=== PATIENT | female | born 1985 | race Caucasian/White ===

== ENCOUNTER 2016-12-15 16:46 | Emergency (ER) | payer OTHER ==
[~2016-12-15] VITALS: Ht 165.1 cm; Wt 99.8 kg
--- NOTE | 2016-12-15 18:44 | ED Integumentary General ---
General Chief Complaint: Bite-Animal/Human/Insect Stated Complaint: L LEG POSS SPIDER BITE Nursing Triage Note: pt reports possible spider bite on left haro that she states started last sunday. reports no improvement throughout the week and increased pain with movement to that area. pt amb into exam room without difficulty. denies chills, fever, or drainage from site. area of redness noted to left haro. Source: patient Exam Limitations: no limitations History of Present Illness Time seen by provider: 18:31 Initial Comments Here with report of possible insect bite to the left mid anterior haro area. This started on Sunday and has worsened through today. States that she got up at 3 a.m. on Sunday morning and smoked a cigarette outside. She got back up at 7 a.m. and noted that she had this wound to the anterior haro that she believes is a spider bite or other insect bite. Now there is redness around this on the lower leg. Denies fever or chills. Denies pain in her calf. Denies recent long trips or car rides or recent surgery. No history of DVT. Denies any pain in her calf or the rest of her leg. Timing/Duration: week, getting worse Severity: moderate Associated Symptoms: edema, No fever, No nasal congestion, No sore throat, No swelling/mass/lumps Allergies and Home Medications Allergies Coded Allergies: Penicillins (Verified Allergy, Unknown, 01/03/07) Home Medications No Active Prescriptions or Reported Meds Constitutional: see HPI, No chills, No fever EENTM: no symptoms reported Respiratory: no symptoms reported, No dyspnea on exertion, No short of breath, No wheezing Cardiovascular: no symptoms reported Gastrointestinal: no symptoms reported Musculoskeletal: see HPI, muscle pain Skin: see HPI, change in color, No lesions Psychiatric/Neurological: No Symptoms Reported Past Mzkzsyu-Upuywu-Sewtxp Hx Patient Social History Alcohol Use: Rarely Uses Number of Drinks Today: 0 Alcohol Beverage of Choice: Vodka Recreational Drug Use: No Smoking Status: Current Everyday Smoker Type Used: Cigarettes 2nd Hand Smoke Exposure: Yes Recent Foreign Travel: No Contact w/Someone Who Travel: No Recent Infectious Disease Expo: No Recent Hopitalizations: No Immunizations Up To Date Tetanus Booster (TDap): More than 5yrs Seasonal Allergies Seasonal Allergies: Yes Surgeries Surgeries: Adenoidectomy, Section, Tonsillectomy Respiratory History of Respiratory Disorde: No Cardiovascular History of Cardiac Disorders: No Neurological History of Neurological Disord: No Reproductive System : No Last Menstrual Period: Nov 24, 2016 Sexually Transmitted Disease: No HIV/AIDS: No Genitourinary History of Genitourinary Disor: No Gastrointestinal History of Gastrointestinal Di: No Musculoskeletal History of Musculoskeletal Dis: No Endocrine History of Endocrine Disorders: No HEENT History of HEENT Disorders: No Cancer History of Cancer: No Psychosocial History of Psychiatric Problem: Yes Behavioral Health Disorders: ADD/ADHD, Anxiety Integumentary History of Skin or Integumenta: Yes Skin/Integumentary Disorders: Eczema Blood Transfusions History of Blood Disorders: Yes (anemia) Reviewed Nursing Assessment Reviewed/Agree w Nursing PMH: Yes Family Medical History Significant Family History: No Pertinent Family Hx Physical Exam Vital Signs Vital Sign - Last 12Hours 12/15/16 18:01 Temp 97.5 Pulse 93 Resp 18 B/P (MAP) 130/71 Pulse Ox 100 O2 Delivery Room Air Capillary Refill : Less Than 3 Seconds General Appearance: WD/WN, no apparent distress Cardiovascular: regular rate, rhythm, no murmur Respiratory: lungs clear, normal breath sounds Gastrointestinal: non tender, soft Extremities: non-tender, No calf tenderness, other (3 x 5 cm area of redness and induration without fluctuance to the mid tibia region anteriorly. There is surrounding mild erythema to the lower extremity below the knee. Nontender throughout the rest of the leg except for the area over the anterior tibia. No pain in the upper leg.) Neurologic/Psychiatric: alert, oriented x 3 Skin: warm/dry, other (skin findings as above.) Progress/Results/Core Measures Results/Orders Vital Signs/I&O Vital Sign - Last 12Hours 12/15/16 18:01 Temp 97.5 Pulse 93 Resp 18 B/P (MAP) 130/71 Pulse Ox 100 O2 Delivery Room Air Blood Pressure Mean: 90 Progress Note : Progress Note Seen and evaluated. Will treat with antibiotic as outpatient given the length of time. This is discussed with the patient and she agrees. Discharged home with return precautions. Patient verbalize understanding instructions and agreement with plan. Departure Impression Impression: Primary Impression: Cellulitis of left lower extremity Additional Impression: Insect bite Qualified Codes: W57.XXXA - Bitten or stung by nonvenomous insect and other nonvenomous arthropods, initial encounter Disposition: HOME, SELF-CARE Condition: Stable Departure-Patient Inst. Decision time for Depature: 18:44 Referrals: NO,LOCAL PHYSICIAN (PCP/Family) Primary Care Physician Patient Instructions: Cellulitis (Skin Infection), Adult (DC), Insect Bites and Stings (DC) Add. Discharge Instructions: All discharge instructions reviewed with patient and/or family. Voiced understanding. You may take ibuprofen 800 mg every 8 hours as needed for pain. You may Take Tylenol 1000 mg every 8 hours as needed for pain. Elevate the leg to reduce swelling as needed. Take medication as directed. Return in 2-3 days for recheck if not improving. Return for worse pain, fever, increasing redness or swelling, breathing problems or other concerns as needed. Scripts Sulfamethoxazole/Trimethoprim (Sulfamethoxazole-Tmp Ds Tablet) 1 Each Tablet 1 EACH PO BID, #20 TAB 0 Refills Prov: MIGUELANGEL KATZ MD 12/15/16 MIGUELANGEL KATZ MD Dec 15, 2016 18:44
[2016-12-15] MEDS ORDERED: SULF-222 PO (18:47)
[2016-12-15 18:53] VITALS: BP 130/71
== END 2016-12-15 18:53 | disposition home or self-care (01) ==
LOC: EDUNIT# 16:46 → ER 16:48
DX: L03.116 Cellulitis of left lower limb (principal); S80.862A Insect bite (nonvenomous), left lower leg, initial encounter; F90.9 Attention-deficit hyperactivity disorder, unspecified type; F41.9 Anxiety disorder, unspecified; F17.210 Nicotine dependence, cigarettes, uncomplicated; Z87.59 Personal history of other complications of pregnancy, childbirth and the puerperium; W57.XXXA Bitten or stung by nonvenomous insect and other nonvenomous arthropods, initial encounter
CPT/HCPCS: 99283

== ENCOUNTER 2019-08-26 21:15 | Emergency (ER) | payer OTHER ==
[~2019-08-26] VITALS: Ht 165 cm; Wt 133.6 kg
[~2019-08-26 21:15] MED LIST: SULF-222 PO
[2019-08-26] MEDS ORDERED: LACTATED RINGERS 1,000 ML IV STA (21:39)
[2019-08-26] MEDS ORDERED: KETOROLAC 30 MG/ML VIAL IVP STA (21:39)
[2019-08-26 21:44] LABS: BILIRUBIN,URINE NEGATIVE (NEGATIVE); CLARITY,URINE CLEAR; COLOR,URINE YELLOW; GLUCOSE, URINE (UA) NEGATIVE (NEGATIVE); KETONES,URINE NEGATIVE (NEGATIVE); LEUKOCYTE ESTERASE ,URINE NEGATIVE (NEGATIVE); NITRITE,URINE NEGATIVE (NEGATIVE); PH,URINE 7.5 (5-9); PROTEIN,URINE NEGATIVE (NEGATIVE)
--- NOTE | 2019-08-26 21:44 | ED Abdominal Pain ---
General Chief Complaint: Chest Wall Stated Complaint: R SIDE PAIN Source of Information: Patient Exam Limitations: No Limitations History of Present Illness Date Seen by Provider: Aug 26, 2019 Time Seen by Provider: 21:32 Initial Comments Here with report of right sided abdominal pain that has been intermittent but worsening over the last week. Not associated with food or eating. She has tried [id number] Prilosec and that has not helped. Has not had pain like this before. Denies dysuria or diarrhea. Denies fever or chills. Denies blood in her stools. Last normal bowel movement was 2 hours ago. She is sexually active but denies . Denies any upper respiratory symptoms or exposure to COVID positive patients. Timing/Duration: 1 Week, Changing Over Time, Getting Worse, Intermittent Severity/Quality: Moderate, Aching Location: RUQ, RLQ, Flank Radiation: RLQ, Back, Flank Activities at Onset: None Modifying Factors: Improves With Other (no exacerbating or relieving factors) Associated Symptoms: No Chest Pain, No Fever/Chills, No Nausea/Vomiting, No Shortness of Air, No Swelling/Mass in Abdomen, No Weakness Allergies and Home Medications Allergies Coded Allergies: Penicillins (Verified Allergy, Unknown, 01/03/07) Patient Home Medication List Home Medication List Reviewed: Yes Review of Systems Review of Systems Constitutional: see HPI; No chills, No fever EENTM: No Symptoms Reported Respiratory: Denies Cough, Denies Shortness of Air Cardiovascular: Denies Chest Pain, Denies Edema Gastrointestinal: Abdominal Pain; Denies Constipated, Denies Diarrhea, Denies Nausea, Denies Vomiting Genitourinary: Flank Pain; Denies Hematuria, Denies Pain Musculoskeletal: see HPI; No muscle pain, No muscle weakness Skin: no symptoms reported Psychiatric/Neurological: No Symptoms Reported Past Ftksfwx-Fsrbno-Bngrjc Hx Past Med/Social Hx: Reviewed Nursing Past Med/Soc Hx Patient Social History Alcohol Use: Denies Use Number of Drinks Today: FF Alcohol Beverage of Choice: Vodka Recreational Drug Use: No Type Used: Cigarettes 2nd Hand Smoke Exposure: Yes Recent Foreign Travel: No Contact w/Someone Who Travel: No Recent Hopitalizations: No Physical Abuse: No Sexual Abuse: No Mistreated: No Fear: No Immunizations Up To Date Tetanus Booster (TDap): More than 5yrs Seasonal Allergies Seasonal Allergies: Yes Past Medical History Surgeries: Yes Adenoidectomy, Section, Tonsillectomy Respiratory: No Cardiac: No Neurological: No Sexually Transmitted Disease: No HIV/AIDS: No Genitourinary: No Gastrointestinal: No Musculoskeletal: No Endocrine: No HEENT: No Cancer: No Psychosocial: Yes ADD/ADHD, Anxiety Integumentary: Yes Eczema Blood Disorders: Yes (anemia) Family Medical History Reviewed Nursing Family Hx No Pertinent Family Hx Physical Exam Vital Signs Vital Signs - First Documented 08/26/19 21:26 Temp 36.8 Pulse 84 Resp 19 B/P (MAP) 148/100 (116) O2 Delivery Room Air Capillary Refill : Height/Weight/BMI Height: 5'5.00" Weight: 220lbs. 0oz. 99.333777nm; BMI Method:Stated General Appearance: WD/WN, no apparent distress Neck: full range of motion, supple Respiratory: lungs clear, normal breath sounds Cardiovascular: regular rate, rhythm, no murmur Gastrointestinal: soft; No guarding, No rebound; tenderness (right upper abdomen mild) Extremities: non-tender, normal inspection Back: normal inspection, no CVA tenderness, no vertebral tenderness Neurologic/Psychiatric: alert, oriented x 3 Skin: normal color, warm/dry Progress/Results/Core Measures Results/Orders Lab Results Laboratory Tests Test 08/26/19 21:28 08/26/19 22:00 Range/Units Urine Color YELLOW Urine Clarity CLEAR Urine pH 7.5 5-9 Urine Specific Veteran 1.020 1.016-1.022 Urine Protein NEGATIVE NEGATIVE Urine Glucose (UA) NEGATIVE NEGATIVE Urine Ketones NEGATIVE NEGATIVE Urine Nitrite NEGATIVE NEGATIVE Urine Bilirubin NEGATIVE NEGATIVE Urine Urobilinogen 1.0 < = 1.0 MG/DL Urine Leukocyte Esterase NEGATIVE NEGATIVE Urine RBC (Auto) NEGATIVE NEGATIVE Urine RBC NONE /HPF Urine WBC RARE /HPF Urine Squamous Epithelial Cells 0-2 /HPF Urine Crystals PRESENT H /LPF Urine Amorphous Sediment RARE SUE PHOSPHATE H /LPF Urine Bacteria TRACE /HPF Urine Casts NONE /LPF Urine Mucus SMALL H /LPF Urine Culture Indicated NO White Blood Count 11.4 H 4.3-11.0 10^3/uL Red Blood Count 4.36 4.35-5.85 10^6/uL Hemoglobin 11.7 11.5-16.0 G/DL Hematocrit 36 35-52 % Mean Corpuscular Volume 82 80-99 FL Mean Corpuscular Hemoglobin 27 25-34 PG Mean Corpuscular Hemoglobin Concent 33 32-36 G/DL Red Cell Distribution Width 17.8 H 10.0-14.5 % Platelet Count 306 130-400 10^3/uL Mean Platelet Volume 10.6 H 7.4-10.4 FL Neutrophils (%) (Auto) 63 42-75 % Lymphocytes (%) (Auto) 31 12-44 % Monocytes (%) (Auto) 4 0-12 % Eosinophils (%) (Auto) 3 0-10 % Basophils (%) (Auto) 0 0-10 % Neutrophils # (Auto) 7.1 1.8-7.8 X 10^3 Lymphocytes # (Auto) 3.5 1.0-4.0 X 10^3 Monocytes # (Auto) 0.4 0.0-1.0 X 10^3 Eosinophils # (Auto) 0.3 0.0-0.3 10^3/uL Basophils # (Auto) 0.0 0.0-0.1 10^3/uL Sodium Level 140 135-145 MMOL/L Potassium Level 4.0 3.6-5.0 MMOL/L Chloride Level 104 98-107 MMOL/L Carbon Dioxide Level 25 21-32 MMOL/L Anion Gap 11 5-14 MMOL/L Blood Urea Nitrogen 13 7-18 MG/DL Creatinine 0.72 0.60-1.30 MG/DL Estimat Glomerular Filtration Rate > 60 BUN/Creatinine Ratio 18 Glucose Level 90 70-105 MG/DL Calcium Level 9.1 8.5-10.1 MG/DL Corrected Calcium 9.2 8.5-10.1 MG/DL Total Bilirubin 0.2 0.1-1.0 MG/DL Aspartate Amino Transf (AST/SGOT) 14 5-34 U/L Alanine Aminotransferase (ALT/SGPT) 15 0-55 U/L Alkaline Phosphatase 90 40-136 U/L C-Reactive Protein High Sensitivity 1.85 H 0.00-0.50 MG/DL Total Protein 7.2 6.4-8.2 GM/DL Albumin 3.9 3.2-4.5 GM/DL My Orders Orders - MIGUELANGEL KATZ MD Urine Bedside (08/26/19 21:39) Cbc With Automated Diff (08/26/19 21:39) Comprehensive Metabolic Panel (08/26/19 21:39) Hs C Reactive Protein (08/26/19 21:39) Ua Culture If Indicated (08/26/19 21:39) Lactated Ringers (Lr 1000 Ml Iv Solution (08/26/19 21:39) Ed Iv/Invasive Line Start (08/26/19 21:39) Ketorolac Injection (Toradol Injection) (08/26/19 21:39) Ct Abdomen/Pelvis W (08/26/19 22:22) Iohexol Injection (Omnipaque 350 Mg/Ml 1 (08/26/19 22:45) Ns (Ivpb) (Sodium Chloride 0.9% Ivpb Bag (08/26/19 22:45) Medications Given in ED Current Medications Medications Dose Ordered Sig/Jama Route Start Time Stop Time Status Last Admin Dose Admin Iohexol 100 ml ONCE ONCE IV 08/26/19 22:45 08/26/19 22:57 DC 08/26/19 22:44 100 ML Sodium Chloride 80 ml ONCE ONCE IV 08/26/19 22:45 08/26/19 22:57 DC 08/26/19 22:45 80 ML Vital Signs/I&O 08/26/19 21:26 Temp 36.8 Pulse 84 Resp 19 B/P (MAP) 148/100 (116) O2 Delivery Room Air 08/27/19 00:00 Intake Total 1000 ml Balance 1000 ml Progress Progress Note : Progress Note Seen and evaluated. IV, labs, UA, UCG bedside, LR 1 L bolus, Toradol 30 mg IV ordered. Anticipate CT abdomen and pelvis. Monitor patient. 2315: CT shows cholelithiasis without cholecystitis. Patient feeling a little better. He will follow-up with Dr. Healy for further evaluation and likely cholecystectomy due to multiple gallstones in the gallbladder. Discharged home with return precautions. Patient verbalize understanding instructions and agreement with plan. Diagnostic Imaging Diagonstic Imaging: CT Plain Films/CT/US/NM/MRI: abdomen, pelvis Comments cholelithiasis without cholecystitis. Reviewed: Reviewed Night Hawk Study, Reviewed by Me Departure Impression Primary Impression: Cholelithiasis Qualified Codes: K80.20 - Calculus of gallbladder without cholecystitis without obstruction Disposition: HOME, SELF-CARE Condition: Improved Departure-Patient Inst. Decision time for Depature: 00:11 Referrals: JUAN MANUEL HEALY,LOCAL PHYSICIAN (PCP) Primary Care Physician Patient Instructions: Gallstones (DC) Add. Discharge Instructions: All discharge instructions reviewed with patient and/or family. Voiced understanding. You may take Tylenol/acetaminophen 1000 mg every 6 hours as needed for pain. Drink plenty of fluids but stick to clear liquid or light diet. Avoid fatty or spicy foods as this will increase your pain. Call Dr. Healy's office in the morning for follow-up appointment for evaluation for your gallbladder problems. Return for worse pain, fever, vomiting, weakness, breathing problems or other concerns as needed. Copy Copies To 1: JUAN MANUEL HEALY TIMOTHY D MD Aug 26, 2019 21:44
[2019-08-26 21:51] LABS: BACTERIA,URINE TRACE /HPF; SQUAMOUS EPITHELIAL CELL,UR 0-2 /HPF; WBC,URINE RARE /HPF
[2019-08-26 21:52] LABS: AMORPHOUS SEDIMENT,UR RARE AMOR PHOSPHATE /LPF
[2019-08-26 22:15] LABS: BASOPHILS % (AUTO) 0 % (0-10); EOSINOPHILS # (AUTO) 0.3 10^3/uL (0.0-0.3); EOSINOPHILS % (AUTO) 3 % (0-10); HEMATOCRIT 36 % (35-52); HEMOGLOBIN 11.7 G/DL (11.5-16.0); LYMPHOCYTES # (AUTO) 3.5 X 10^3 (1.0-4.0); LYMPHOCYTES % (AUTO) 31 % (12-44); MEAN CORPUSCULAR HEMOGLOBIN 27 PG (25-34); MEAN CORPUSCULAR HGB CONC 33 G/DL (32-36); MEAN CORPUSCULAR VOLUME 82 FL (80-99); MEAN PLATELET VOLUME 10.6 FL (7.4-10.4); MONOCYTES # (AUTO) 0.4 X 10^3 (0.0-1.0); MONOCYTES % (AUTO) 4 % (0-12); NEUTROPHILS # (AUTO) 7.1 X 10^3 (1.8-7.8); NEUTROPHILS % (AUTO) 63 % (42-75); PLATELET COUNT 306 10^3/uL (130-400); RED CELL DISTRIBUTION WIDTH 17.8 % (10.0-14.5); WHITE BLOOD COUNT 11.4 10^3/uL (4.3-11.0)
[2019-08-26 22:19] LABS: ALBUMIN 3.9 GM/DL (3.2-4.5); CHLORIDE 104 MMOL/L (98-107); SODIUM 140 MMOL/L (135-145)
[2019-08-26 22:20] LABS: CALCIUM 9.1 MG/DL (8.5-10.1)
[2019-08-26 22:22] LABS: GLUCOSE 90 MG/DL (70-105); TOTAL PROTEIN 7.2 GM/DL (6.4-8.2)
[2019-08-26 22:23] LABS: BILIRUBIN,TOTAL 0.2 MG/DL (0.1-1.0); CARBON DIOXIDE 25 MMOL/L (21-32)
--- OUTSIDE RECORDS SUMMARY | 2019-08-26 22:24 | XMS REPORT ---
Author Author Jagruti DUENAS Organization [facility] Address [address] [place] [address] Care Team Providers Care Pharmacist Helper Name Role Phone JAYLON DUENAS Unavailable PROBLEMS Type Condition ICD9-CM Code ANW49-SV Code Onset Dates Condition S tatus SNOMED Code Problem Dysthymia F34.1 Active [id number] ALLERGIES Substance Reaction Event Type Date Status Penicillin V Potassium hives Drug Allergy Oct, Activ e ENCOUNTERS Encounter Location Date Diagnosis [facility] [address] [id number] [address] [place] [id number] Oct, Screening for other and unsp ecified deficiency anemia Z13.0 and Screening for hyperlipidemia Z13.220 [facility] [address] [id number] [address] [place] [id number] Oct, Dysthymia F34.1 ; Screening for diabetes mellitus Z13.1 ; Screening for thyroid disorder Z13.29 ; Screening for hyperlipidemia Z13.220 ; Screening for other and unspecified deficiency anemia Z13.0 and BMI 40.0-44.9, adult Z68.[address] [id number] [address] [place] [id number] Sep, test negative Z32. 02 IMMUNIZATIONS No Known Immunizations SOCIAL HISTORY Never Assessed REASON FOR VISIT Establish Care-----DBennettRN, irregular periods, was told she was infertile and period was 2 weeks late, but has started since PLAN OF CARE Activity Details Follow Up 4 Weeks Reason:depression/ne eds [employer] VITAL SIGNS Height 65 in 2017-10-17 Weight 250 lbs 2017-10-17 Temperature 98.2 degrees Fahrenheit 2017-10-17 Heart Rate 80 bpm 2017-10-17 Respiratory Rate 20 2017-10-17 BMI 41.60 kg/m2 2017-10-17 Blood pressure systolic 112 mmHg 2017-10-17 Blood pressure diastolic 80 mmHg 2017-10-17 MEDICATIONS Medication Instructions Dosage Frequency Start Date End Date Duration S tat Prozac 20 mg Orally Once a day 1 capsule 24h Oct, 30 day(s) Active RESULTS No Results PROCEDURES Procedure Date Ordered Result Body Site COMPREHEN METABOLIC PANEL Oct 17, 2017 ASSAY THYROID STIM HORMONE Oct 17, 2017 COMPLETE CBC W/AUTO DIFF WBC Oct 17, 2017 LIPID PANEL Oct 17, 2017 INSTRUCTIONS MEDICATIONS ADMINISTERED No Known Medications MEDICAL (GENERAL) HISTORY Type Description Date Medical History anemia Medical History depression Medical History anxiety Medical History obsessive-compulsive personality disorde r Surgical History tonsillectomy and adenoidectomy Surgical History section
--- OUTSIDE RECORDS SUMMARY | 2019-08-26 22:24 | XMS REPORT | Continuity of Care Document ---
Author Organization Unknown Address Unknown Phone Unavailable Allergies Active Description Code Type Severity Reaction Onset Reported/Identified Relationship to Patient Clinical Status Yes Penicillins [id number] Drug Aller gy Unknown N/A 01/03/2007 Medications There is no data. Problems Date Dx Coded Attending Type Code Diagnosis Diagnosed By 12/15/2016 MIGUELANGEL KATZ MD, Ot F17.210 NICOTINE DEPENDENCE, CIGARETTES, UNCOMPL 12/15/2016 MIGUELANGEL KATZ MD Ot F41.9 ANXIETY DISORDER, UNSPECIFIED 12/15/2016 MIGUELANGEL KATZ MD Ot F90.9 ATTENTION-DEFICIT HYPERACTIVITY DISORDER 12/15/2016 MIGUELANGEL KATZ MD Ot L03.116 CELLULITIS OF LEFT LOWER LIMB 12/15/2016 MIGUELANGEL KATZ MD Ot S80.862A INSECT BITE (NONVENOMOUS), LEFT LOWER LE 12/15/2016 MIGUELANGEL KATZ MD Ot W57.XXXA BIT/STUNG BY NONVENOM INSECT OTH NONVE 12/15/2016 MIGUELANGEL KATZ MD Ot Z87.59 PERSONAL HISTORY OF COMP OF PREG, CHLDBR 12/18/2016 MIGUELANGEL KATZ MD Ot F17.210 NICOTINE DEPENDENCE, CIGARETTES, UNCOMPL 12/18/2016 MIGUELANGEL KATZ MD Ot F41.9 ANXIETY DISORDER, UNSPECIFIED 12/18/2016 MIGUELANGEL KATZ MD Ot F90.9 ATTENTION-DEFICIT HYPERACTIVITY DISORDER 12/18/2016 MIGUELANGEL KATZ MD Ot L03.116 CELLULITIS OF LEFT LOWER LIMB 12/18/2016 MIGUELANGEL KATZ MD Ot S80.862A INSECT BITE (NONVENOMOUS), LEFT LOWER LE 12/18/2016 MIGUELANGEL KATZ MD Ot W57.XXXA BIT/STUNG BY NONVENOM INSECT OTH NONVE 12/18/2016 MIGUELANGEL KATZ MD Ot Z87.59 PERSONAL HISTORY OF COMP OF PREG, CHLDBR Procedures Code Description Performed By Per formed On 74.1 LOW C ERVICAL 01/04/2007 Results Test Result Range TSH - 10/17/17 10:06 TSH 1.95 mIU/L NRG SUREPATH PAP AND HPV mRNA E6/E7 - 10:50 CLINICAL INFORMATION: NRG LMP: 06/29/18 NRG PREV. PAP: UNKNOWN NRG PREV. BX: NRG SOURCE: Cervix NRG STATEMENT OF ADEQUACY: NRG INTERPRETATION/RESULT: NRG FORM BUILDER HELPER: NRG HPV mRNA E6/E7, SUREPATH VIAL Not Detected NOT DETECTED COMMENT NRG Complete urinalysis with reflex to cultu re - 08/26/19 21:28 Urine color determination YELLOW NRG Urine clarity determination CLEAR NR G Urine pH measurement by test strip 7.5 5-9 Specific gravity of urine by test strip 1.020 1.016-1.022 Urine protein assay by test strip, semi-quantitative NEGATIVE NEGATIVE Urine glucose detection by automated test strip NE GATIVE NEGATIVE Erythrocytes detection in urine sediment by light micr oscopy NEGATIVE NEGATIVE Urine ketones detection by automated test strip NE GATIVE NEGATIVE Urine nitrite detection by test strip NEGATIVE NEGATIVE Urine total bilirubin detection by test strip NEGA TIVE NEGATIVE Urine urobilinogen measurement by automated test strip (mass/volume) 1.0 mg/dL < = 1.0 Urine leukocyte esterase detection by dipstick NEG ATIVE NEGATIVE Automated urine sediment erythrocyte cou nt by microscopy (number/high power field) NONE NRG Automated urine sediment leukocyte count by microscopy (number/high power field) RARE NRG Bacteria detection in urine sediment by light microsco py TRACE NRG Squamous epithelial cells detection in u rine sediment by light microscopy 0-2 NRG Crystals detection in urine sediment by light microsco py PRESENT NRG Casts detection in urine sediment by light microscopy NONE NRG Mucus detection in urine sediment by light microscopy SMALL NRG Complete urinalysis with reflex to culture NO NRG Amorphous sediment detection in urine sediment by ligh t microscopy RARE SUE PHOSPHATE NRG Complete blood count (CBC) with automate d white blood cell (WBC) differential - 08/26/19 22:00 Blood leukocytes automated count (number/volume) 11.4 10*3/uL 4.3-11.0 Blood erythrocytes automated count (number/volume) 4.36 10*6/uL 4.35-5.85 Venous blood hemoglobin measurement (mass/volume) 11.7 g/dL 11.5-16.0 Blood hematocrit (volume fraction) 36 % 35-52 Automated erythrocyte mean corpuscular volume 82 [ foz_us] 80-99 Automated erythrocyte mean corpuscular h emoglobin (mass per erythrocyte) 27 pg 25-34 Automated erythrocyte mean corpuscular h emoglobin concentration measurement (mass/volume) 33 g/dL 32-36 Automated erythrocyte distribution width ratio 17. 8 % 10.0- 14.5 Automated blood platelet count (count/volume) 306 10*3/uL 130-400 Automated blood platelet mean volume measurement 10.6 [foz_us] 7.4-10.4 Automated blood neutrophils/100 leukocytes 63 % 42-75 Automated blood lymphocytes/100 leukocytes 31 % 12-44 Blood monocytes/100 leukocytes 4 % 0-12 Automated blood eosinophils/100 leukocytes 3 % 0-10 Automated blood basophils/100 leukocytes 0 % 0-10 Blood neutrophils automated count (number/volume) 7.1 10*3 1.8-7.8 Blood lymphocytes automated count (number/volume) 3.5 10*3 1.0-4.0 Blood monocytes automated count (number/volume) 0. 4 10*3 0.0-1.0 Automated eosinophil count 0.3 10*3/uL 0 .0-0.3 Automated blood basophil count (count/volume) 0.0 10*3/uL 0.0-0.1 Comprehensive metabolic panel - 08/26/19 22:00 Serum or plasma sodium measurement (moles/volume) 140 mmol/L 135-145 Serum or plasma potassium measurement (moles/volume) 4.0 mmol/L 3.6-5.0 Serum or plasma chloride measurement (moles/volume) 104 mmol/L 98-107 Carbon dioxide 25 mmol/L 21-32 Serum or plasma anion gap determination (moles/volume) 11 mmol/L 5-14 Serum or plasma glucose measurement (mass/volume) 90 mg/dL 70-105 Serum or plasma calcium measurement (mass/volume) 9.1 mg/dL 8.5-10.1 Serum or plasma total bilirubin measurement (mass/volu me) 0.2 mg/dL 0.1-1.0 Serum or plasma protein measurement (mass/volume) 7.2 g/dL 6.4-8.2 Serum or plasma albumin measurement (mass/volume) 3.9 g/dL 3.2-4.5 CALCIUM CORRECTED 9.2 mg/dL 8.5-10.1 Encounters ACCT No. Visit Date/Time Discharge Status Pt. Type Provider Facility Loc./Unit Complaint [id number] 07/26/2018 10:00:00 07/26/2018 23:59:5 9 [facility] Outpatient JAYLON DUENAS [facility] [id number] 07/26/2018 10:00:00 Document Registration [id number] 10/17/2017 09:00:00 Document Registration [id number] 12/15/2016 16:48:00 017 18:53:00 DIS Emergency GIANNA DUARTE, MIGUELANGEL [facility] ER L LEG POSS SPID ER BITE [id number] 08/26/2019 21:52:00 Document Registration [id number] 01/03/2007 17:13:00 Document Registration
--- OUTSIDE RECORDS SUMMARY | 2019-08-26 22:24 | XMS REPORT ---
Author Author Jagruti DUENAS Organization [facility] Address [address] [place] [address] Care Team Providers Care Roller Skate Assembler Name Role Phone JAYLON DUENAS Unavailable PROBLEMS Type Condition ICD9-CM Code [id number] Code Onset Dates Condition S tatus SNOMED Code Problem Dysthymia F34.1 Active [id number] ALLERGIES No Information ENCOUNTERS Encounter Location Date Diagnosis [place] [id number] [place] [id number] [place] [phone] Oct, Screening for other and unsp ecified deficiency anemia Z13.0 and Screening for hyperlipidemia Z13.220 [place] [address] [place] [id number] [address] [place] [phone] Oct, Dysthymia F34.1 ; Screening for diabetes mellitus Z13.1 ; Screening for thyroid disorder Z13.29 ; Screening for hyperlipidemia Z13.220 ; Screening for other and unspecified deficiency anemia Z13.0 and BMI 40.0-44.9, adult Z68.41 [place] [address] [place] [id number] [address] [place] [phone] Sep, test negative Z32. 02 IMMUNIZATIONS No Known Immunizations SOCIAL HISTORY Never Assessed REASON FOR VISIT lab order PLAN OF CARE VITAL SIGNS MEDICATIONS Unknown Medications RESULTS No Results PROCEDURES No Known procedures INSTRUCTIONS MEDICATIONS ADMINISTERED No Known Medications MEDICAL (GENERAL) HISTORY Type Description Date Medical History anemia Medical History depression Medical History anxiety Medical History obsessive-compulsive personality disorde r Surgical History tonsillectomy and adenoidectomy Surgical History section
--- OUTSIDE RECORDS SUMMARY | 2019-08-26 22:24 | XMS REPORT ---
Author Author Jagruti MEDINA Organization [facility] Address [address] [place] [address] Care Team Providers Care Stretcher Leveler Operator Name Role Phone JAMIE MEDINA Unavailable PROBLEMS Type Condition ICD9-CM Code [id number] Code Onset Dates Condition S tatus SNOMED Code Problem Dysthymia F34.1 Active [id number] ALLERGIES No Information ENCOUNTERS Encounter Location Date Diagnosis [place] [id number] [place] [phone] Oct, Screening for other and unsp ecified deficiency anemia Z13.0 and Screening for hyperlipidemia Z13.220 [place] [id number] [address] [place] [phone] Oct, Dysthymia F34.1 ; Screening for diabetes mellitus Z13.1 ; Screening for thyroid disorder Z13.29 ; Screening for hyperlipidemia Z13.220 ; Screening for other and unspecified deficiency anemia Z13.0 and BMI 40.0-44.9, adult Z68.41 [place] [id number] [place] [phone] Sep, test negative Z32. 02 IMMUNIZATIONS No Known Immunizations SOCIAL HISTORY Never Assessed REASON FOR VISIT /urine PLAN OF CARE VITAL SIGNS MEDICATIONS Unknown Medications RESULTS Name Result Date Reference Range TEST, URINE (IN HOUSE) 2017-10-08 RESULTS Negative Lot # [id number] Control + Exp date 11 Apr 2019 PROCEDURES Procedure Date Ordered Result Body Site URINE TEST October 08, 2017 INSTRUCTIONS MEDICATIONS ADMINISTERED No Known Medications MEDICAL (GENERAL) HISTORY Type Description Date Medical History anemia Medical History depression Medical History anxiety Medical History obsessive-compulsive personality disorde r Surgical History tonsillectomy and adenoidectomy Surgical History section
[2019-08-26 22:25] LABS: ALKALINE PHOSPHATASE 90 U/L (40-136)
[2019-08-26 22:26] LABS: CREATININE SERUM 0.72 MG/DL (0.60-1.30); GFR ESTIMATED > 60
[2019-08-26 22:27] LABS: BUN/CREATININE RATIO 18
[2019-08-26 22:28] LABS: ALANINE AMINOTRANSFERASE 15 U/L (0-55)
[2019-08-26] MEDS ORDERED: NS 100 ML (IVPB) BAG IV ONE (22:45)
[2019-08-26] MEDS ORDERED: IOHEXOL 350 MG/ML 100 ML (OMNIPAQUE 350) VIAL IV ONE (22:45)
[2019-08-27 00:25] VITALS: BP 127/92
--- NOTE | 2019-08-27 06:29 | Diagnostic Imaging Report ---
PROCEDURE: CT abdomen and pelvis with contrast. TECHNIQUE: Multiple contiguous axial images were obtained through the abdomen and pelvis after administration of intravenous contrast. Auto Exposure Controls were utilized during the CT exam to meet ALARA standards for radiation dose reduction. INDICATION: Right-sided abdominal pain. COMPARISON: None. FINDINGS: Lung bases are clear. Large gallstones without secondary findings of cholecystitis. The liver, pancreas, spleen, adrenals, kidneys, collecting systems, bladder and appendix are negative. Reproductive structures are grossly unremarkable. No free intraperitoneal air or fluid. No lymphadenopathy. No evidence of bowel obstruction or inflammation. No acute osseous findings. IMPRESSION: Cholelithiasis without secondary findings of cholecystitis. No acute CT findings in the abdomen or pelvis. Dictated by: Dictated on workstation # [id number]
== END 2019-08-27 00:31 | disposition home or self-care (01) ==
LOC: EDUNIT# 21:15 → ER 21:17
DX: K80.20 Calculus of gallbladder without cholecystitis without obstruction (principal); Z88.0 Allergy status to penicillin; Z77.22 Contact with and (suspected) exposure to environmental tobacco smoke (acute) (chronic)
CPT/HCPCS: 36415; 74177; 80053; 81000; 84703; 85025; 86141

== ENCOUNTER 2019-09-08 05:36 | Outpatient (RCR) | payer OTHER ==
[~2019-09-08] VITALS: Ht 165.1 cm; Wt 134.1 kg
== END 2019-09-08 09:53 | disposition home or self-care (01) ==
LOC: PREOP 05:36
PROVIDERS: ATTEND Surgery
DX: Z01.812 Encounter for preprocedural laboratory examination (principal); K80.20 Calculus of gallbladder without cholecystitis without obstruction; Z20.828 Contact with and (suspected) exposure to other viral communicable diseases
CPT/HCPCS: 87635

== ENCOUNTER 2019-09-11 09:34 | Day surgery (SDC) | payer OTHER ==
[~2019-09-11] VITALS: Ht 165.1 cm; Wt 134.1 kg
[2019-09-11] VITALS (12 sets, daily range): BP systolic 136–153; BP diastolic 73–99
--- OUTSIDE RECORDS SUMMARY | 2019-09-11 09:40 | XMS REPORT | Continuity of Care Document ---
Author Organization Unknown Address Unknown Phone Unavailable Allergies Active Description Code Type Severity Reaction Onset Reported/Identified Relationship to Patient Clinical Status Yes Penicillins [id number] Drug Aller gy Unknown N/A 01/03/2007 Medications There is no data. Problems Date Dx Coded Attending Type Code Diagnosis Diagnosed By JUAN MANUEL SERRATO DO Ot K80.2 0 CALCULUS OF GALLBLADDER W/O CHOLECYSTITI JUAN MANUEL SERRATO DO Ot Z01.8 12 ENCOUNTER FOR PREPROCEDURAL LABORATORY E JUAN MANUEL SERRATO DO Ot Z20.8 28 CONTACT W AND EXPOSURE TO OTH VIRAL COMM 12/15/2016 MIGUELANGEL KATZ MD Ot F17.210 NICOTINE DEPENDENCE, CIGARETTES, UNCOMPL 12/15/2016 [...] PERSONAL HISTORY OF COMP OF PREG, CHLDBR 08/31/2019 MIGUELANGEL KATZ MD Ot K80.20 CALCULUS OF GALLBLADDER W/O CHOLECYSTITI 08/31/2019 MIGUELANGEL KATZ MD Ot R10.11 RIGHT UPPER QUADRANT PAIN 08/31/2019 MIGUELANGEL KATZ MD Ot Z77.22 CNTCT W AND EXPSR TO ENVIRON TOBACCO SMO 08/31/2019 MIGUELANGEL KATZ MD Ot Z88.0 ALLERGY STATUS TO PENICILLIN Procedures Code Description Performed By Per formed On 74.1 LOW C ERVICAL 01/04/2007 Results Test Result Range TSH - 10/17/17 10:06 TSH 1.95 mIU/L NRG SUREPATH PAP AND HPV mRNA E6/E7 - 10:50 CLINICAL INFORMATION: NRG LMP: 06/29/18 NRG PREV. PAP: UNKNOWN NRG PREV. BX: NRG SOURCE: Cervix NRG STATEMENT OF ADEQUACY: NRG INTERPRETATION/RESULT: NRG DRAW OPERATOR: NRG HPV mRNA E6/E7, SUREPATH VIAL Not [...] (moles/volume) 11 mmol/L 5-14 Serum or plasma urea nitrogen measurement (mass/volume ) 13 mg/dL 7-18 Serum or plasma creatinine measurement (mass/volume) 0.72 mg/dL 0.60-1.30 Serum or plasma urea nitrogen/creatinine mass ratio 18 NRG Serum or plasma creatinine measurement w ith calculation of estimated glomerular filtration rate > NRG Serum or plasma glucose measurement (mass/volume) 90 mg/dL 70-105 Serum or plasma calcium measurement (mass/volume) 9.1 mg/dL 8.5-10.1 Serum or plasma total bilirubin measurement (mass/volu me) 0.2 mg/dL 0.1-1.0 Serum or plasma alkaline phosphatase jagdish surement (enzymatic activity/volume) 90 U/L 40-136 Serum or plasma aspartate aminotransfera se measurement (enzymatic activity/volume) 14 U/L 5-34 Serum or plasma alanine aminotransferase measurement (enzymatic activity/volume) 15 U/L 0-55 Serum or plasma protein measurement (mass/volume) 7.2 g/dL 6.4-8.2 Serum or plasma albumin measurement (mass/volume) 3.9 g/dL 3.2-4.5 CALCIUM CORRECTED 9.2 mg/dL 8.5-10.1 Serum or plasma C reactive protein measu rement (mass/volume) - 08/26/19 22:00 Serum or plasma C reactive protein measurement (mass/v olume) 1.85 mg/dL 0.00-0.50 Coronavirus SARS-CoV-2 SO 2018 - 0 08:00 Coronavirus Ab [Units/volume] in Serum Negative Negative Encounters ACCT No. Visit Date/Time Discharge Status Pt. Type Provider Facility Loc./Unit Complaint [id number] 07/26/2018 10:00:00 07/26/2018 23:59:5 9 CLS Outpatient JAYLON DUENAS [facility] [id number] 07/26/2018 10:00:00 Document Registration [id number] 10/17/2017 09:00:00 Document Registration [id number] 09/08/2019 05:36:00 020 09:53:00 DIS Outpatient JUAN MANUEL SERRATO DO [facility] PREOP SYMPTOMATIC CHOLELITHIA SIS [id number] 08/26/2019 21:17:00 020 00:31:00 DIS Outpatient MIGUELANGEL KATZ MD [facility] ER R SIDE PAIN [id number] 12/15/2016 16:48:00 017 18:53:00 DIS Emergency MIGUELANGEL KATZ MD [facility] ER L LEG POSS SPID ER BITE [id number] 09/11/2019 09:34:[address] Outpatient JUAN MANUEL SERRATO DO [facility] SDC SYMPTOMATIC CHOLELITHIASIS [id number] 01/03/2007 17:13:00 Document Registration
[2019-09-11] MEDS ORDERED: CLINDAMYCIN 600 MG/50 ML IVPB 50 ML IV ONE ×2 (09:51→10:00)
[2019-09-11] MEDS: LACTATED RINGERS 1,000 ML IV PRN ×2 (10:00→11:57)
[2019-09-11] MEDS ORDERED: CATHETER FLUSH 10 ML SYR IV PRN (10:00)
--- NOTE | 2019-09-11 10:30 | Progress Note-Pre Operative ---
Pre-Operative Progress Note H&P Reviewed The H&P was reviewed, patient examined and no changes noted. Date Seen by Provider: Sep 11, 2019 Time Seen by Provider: 10:30 Date H&P Reviewed: Sep 11, 2019 Time H&P Reviewed: 10:30 Pre-Operative Diagnosis: symptomatic cholelithiasis JUAN MANUEL SERRATO DO Sep 11, 2019 10:30
[2019-09-11] MEDS ORDERED: BUP/EPI 0.5% 1:200,000 (SENSORCAINE) 30 ML VIAL ONE (10:49)
[2019-09-11] MEDS ORDERED: IOPAMIDOL 61% 30 ML (ISOVUE 300) VIAL ONE (10:49)
[2019-09-11] MEDS ORDERED: fentaNYL INJECTION 100 MCG/2 ML AMP ONE (11:10)
[2019-09-11] MEDS ORDERED: proPOfol 200 MG/20 ML (DIPRIVAN) VIAL IV ONE (11:11)
[2019-09-11] MEDS ORDERED: MIDAZOLAM 2 MG/2 ML (VERSED) VIAL ONE (11:11)
[2019-09-11] MEDS ORDERED: DEXAMETHASONE 10 MG/ML (DECADRON) 1 ML VIAL ONE (11:12)
[2019-09-11] MEDS ORDERED: SEVOFLURANE (ULTANE) 15 ML INHAL SOLN ONE (11:12)
[2019-09-11] MEDS ORDERED: ONDANSETRON 4 MG/2 ML (SDV) Z0FRAN ONE (11:12)
[2019-09-11] MEDS ORDERED: NEOSTIGMINE 3 MG/3 ML VIAL ONE (11:12)
[2019-09-11] MEDS ORDERED: LIDOCAINE PF 2% 5 ML (XYLOCAINE) VIAL ONE (11:12)
[2019-09-11] MEDS ORDERED: GLYCOPYRROLATE 0.2 MG/ML (ROBINUL) 2 ML VIAL ONE (11:12)
[2019-09-11] MEDS ORDERED: ROCURONIUM 10 MG/ML 5 ML SYRINGE IV ONE (11:13)
[2019-09-11] MEDS ORDERED: FLUO20CA42 PO (11:40)
[2019-09-11] MEDS ORDERED: MULT-1136 PO (11:40)
[2019-09-11] MEDS ORDERED: FERR-84 PO (11:40)
[2019-09-11] MEDS ORDERED: HYDROmorphone 2 MG/ML VIAL (DILAUDID) ONE (12:16)
--- NOTE | 2019-09-11 12:51 | Progress Note-Post Operative ---
Post-Operative Progess Note Surgeon (s)/Warehouse Production Worker (s) Surgeon JUAN MANUEL SERRATO DO Warehouse Production Worker: Dr. Joseph to assist in retraction dissection and closure Pre-Operative Diagnosis symptomatic cholelithiasis Post-Operative Diagnosis same Procedure & Operative Findings Date of Procedure 09/11/19 Procedure Performed/Findings PROCEDURE: Laparoscopic cholecystectomy with intraoperative cholangiogram. COMPLICATIONS: None. PROCEDURE: The patient was taken to the operating suite and was prepped and draped in sterile fashion. A surgical pause was performed. Just superior to the umbilicus, a 12 mm incision was made. Dissection was taken down to the fascia, which was then scored and grasped with a Hortensia and the abdomen was then entered. A 0 Vicryl suture was placed in a qnpuyp-cq-lralt fashion and a Arriaga trocar was placed and secured. Pneumoperitoneum was achieved. A 5mm trochar place in the subxyphoid and 2 in the right upper quadrant. The gallbladder was then grasped and elevated. The cystic duct, and cystic artery were then dissected out. Clip was placed on the distal portion of the cystic duct which was then partially transected. Sludge was evacuated from the cystic duct. An arrow catheter was inserted into the duct. The cholangiogram was then performed. No filing defects and contrast made its way into the duodenum. Catheter removed. Clips were placed on proximal portion of the cystic duct and then the duct was then transected. Clips were placed along the proximal and distal portion of the cystic artery which was then transected. Hook cautery was used to dissect the gallbladder from the gallbladder fossa achieving hemostasis. The gallbladder was placed in an Endobag and removed through the 12 mm trocar site. The abdomen was then reinspected. Copious amounts of irrigation were used to irrigate the abdomen and there were no signs of active bleeding. Hemostasis had been achieved. The 12 mm fascial defect was then closed with 0 Vicryl suture that had been placed in a lgzbzh-bq-mnitu fashion. The abdomen was then desufflated, the trocars were removed. The abdomen was then washed and dried. The skin was then closed using 4-0 Monocryl in a subcuticular fashion. The abdomen was washed and dried and Skin Affix was place over incisions. Patient tolerated the procedure well without any complications and was taken to the recovery room in stable condition. Anesthesia Type gen Estimated Blood Loss Estimated blood loss (mL): min Specimens/Packing Specimens Removed gallbladder JUAN MANUEL SERRATO DO Sep 11, 2019 12:51
[2019-09-11] MEDS ORDERED: DOCU-143 PO (12:53)
[2019-09-11] MEDS ORDERED: HYDR-4226 PO (12:53)
--- NOTE | 2019-09-11 12:53 | Discharge Inst-Simple/Standard ---
Discharge Inst-Standard Discharge Medications New, Converted or Re-Newed RX: RX on Chart Patient Instructions/Follow Up Plan of Care/Instructions/FU: 2 weeks Monet Activity as Tolerated: No Discharge Diet: Regular Diet Other Inst to Patient Follow up Appt: Make appointment for 2 weeks. Instructions: No lifting greater than 10 pounds. No strenuous activity. May shower in 24 hours, no tub bath or soaking. Use incentive spirometer at home as directed. No Smoking Skin/Wound Care: You have special glue over incision, it will fall off on it's own. Symptoms to Report: Appetite Changes, Extremity Discoloration, Numbness/Tingling, Swelling Increased, Bleeding Excessive, Eyesight Changes, Pain Increased, Urine Color Change, Constipation(Persistent), Fever over 101 degree F, Pain/Pressure in ches t, Urinating Difficulty, Cough Up/Vomit Blood, Heart Beat Irreg/Pounding, Pain/Pressure in jaw, Vaginal Bleeding Increase, Cramps in feet or legs, Lightheadedness, Pain/Pressure in shoulder, Diarrhea(Persistent), Memory Changes Suddenly, Questions/Concerns, Weight gain consecutive days, Dizziness/Fainting, Nausea/Vomiting, Shortness of Breath, Weight gain over 2 pounds. If eyes or skin turn yellow notify physician. If questions or concerns contact your physician Or seek help at emergency department. JUAN MANUEL SERRATO DO Sep 11, 2019 12:53
[2019-09-11] MEDS ORDERED: ONDANSETRON 4 MG/2 ML (SDV) Z0FRAN IVP PRN (13:00)
[2019-09-11] MEDS ORDERED: HYDROmorphone 2 MG/ML VIAL (DILAUDID) IV ONE (13:00)
[2019-09-11] MEDS ORDERED: morphine INJ 10 MG/ML 1ML (SYR OR VIAL) IVP ONE (13:00)
--- NOTE | 2019-09-11 14:04 | Diagnostic Imaging Report ---
INDICATION: Fluoroscopy during intraoperative cholangiogram. Fluoroscopy was provided in the OR during intraoperative cholangiogram. 8 seconds of fluoroscopic time was utilized. Images demonstrate contrast being injected via the cystic duct remnant. Contrast is seen within nondilated intrahepatic and extrahepatic bile ducts. No filling defects are identified. There is contrast flowing into the duodenum. IMPRESSION: Fluoroscopy during intraoperative cholangiogram. Dictated by: Dictated on workstation # [id number]
--- NOTE | 2019-09-11 14:15 | Anesthesia-General Post-Op ---
General Patient Condition Mental Status/LOC: Same as Preop Cardiovascular: Satisfactory Nausea/Vomiting: Absent Respiratory: Satisfactory Pain: Controlled Complications: Absent Post Op Complications Complications None Follow Up Care/Instructions Patient Instructions None needed. Anesthesia/Patient Condition Patient Condition Patient was seen after the procedure and she was doing well, no complaints, stable vital signs, no apparent adverse anesthesia problems. VANDA STOCKTON DO Sep 11, 2019 14:15
== END 2019-09-11 15:15 | disposition home or self-care (01) ==
LOC: SDC 09:34
PROVIDERS: ATTEND Surgery
DX: K80.10 Calculus of gallbladder with chronic cholecystitis without obstruction (principal); F17.210 Nicotine dependence, cigarettes, uncomplicated; F41.9 Anxiety disorder, unspecified; D64.9 Anemia, unspecified; Z88.0 Allergy status to penicillin; E66.01 Morbid (severe) obesity due to excess calories; Z68.42 Body mass index [BMI] 45.0-49.9, adult; Z79.899 Other long term (current) drug therapy
CPT/HCPCS: 76000; 84703; 87081; 88304

== ENCOUNTER 2020-10-10 17:57 | Emergency (ER) | payer SELFPAY ==
[~2020-10-10] VITALS: Ht 165.1 cm; Wt 129.2 kg
[~2020-10-10 17:57] MED LIST changes: +DOCU-143 PO; +FERR-84 PO; +FLUO20CA42 PO; +HYDR-4226 PO; +MULT-1136 PO
[2020-10-10 18:05] VITALS: BP 151/87
--- NOTE | 2020-10-10 18:26 | ED EENT ---
History of Present Illness General Chief Complaint: Dental Problems/Pain Stated Complaint: JAW PAIN Nursing Triage Note: Patient ambulatory to ER with c/o right jaw pain x 2 days radiating into the right ear. Pt states she just completed a Z-pack today for a tooth infection prescribed by [facility]. Source: patient Exam Limitations: no limitations History of Present Illness Date Seen by Provider: Oct 10, 2020 Time Seen by Provider: 18:24 Allergies and Home Medications Allergies Coded Allergies: Penicillins (Verified Allergy, Unknown, 01/03/07) Home Medications Docusate Sodium 100 Mg Capsule, 100 MG PO BID Prescribed by: JUAN MANUEL SERRATO on 09/11/19 1253 Fluoxetine HCl 20 Mg Capsule, 20 MG PO DAILY, (Reported) Hydrocodone/Acetaminophen 1 Each Tablet, 1 TAB PO Q4-6HR Prescribed by: JUAN MANUEL SERRATO on 09/11/19 1253 Multivitamin 1 Each Tablet, 1 EACH PO DAILY, (Reported) Past Ammuzyn-Bpkrqc-Tttxya Hx Patient Social History Tobacco Use?: Yes Tobacco type used: Cigarettes Smoking Status: Current Everyday Smoker Smokeless Tobacco Frequency: Never a User Use of E-Cig and/or Vaping dev: No Use of E-Cig and/or Vaping Art: Never a User Substance use?: No Alcohol Use?: No Pt feels they are or have been: No Immunizations Up To Date Tetanus Booster (TDap): More than 5yrs First/Initial COVID19 Vaccinat: September 26, 2020 COVID19 Vaccine Budget Specialist: Moderna Seasonal Allergies Seasonal Allergies: Yes Past Medical History Surgery/Hospitalization HX: x 2 Surgeries: Yes (c/s x2) Adenoidectomy, Section, Tonsillectomy Respiratory: No Cardiac: No Neurological: No Sexually Transmitted Disease: No HIV/AIDS: No Genitourinary: No Gastrointestinal: Yes Gall Bladder Disease Musculoskeletal: No Endocrine: No HEENT: No Cancer: No Psychosocial: Yes ADD/ADHD, Anxiety Integumentary: Yes Eczema Blood Disorders: Yes (anemia) Family Medical History No Pertinent Family Hx Physical Exam Vital Signs Vital Signs - First Documented 10/10/20 18:05 Temp 37.0 Pulse 83 Resp 14 B/P (MAP) 151/87 (108) Pulse Ox 98 O2 Delivery Room Air Height, Weight, BMI Height: 5'5.00" Weight: 220lbs. 0oz. 99.952925py; 47.00 BMI Method:Stated Progress/Results/Core Measures Results/Orders My Orders Orders - KYLE CLAROS APRN Ketorolac Injection (Toradol Injection) (10/10/20 18:30) Clindamycin Capsule (Cleocin Capsule) (10/10/20 18:30) Rx-Tramadol Hcl (Rx-Ultram) (10/10/20 18:26) Medications Given in ED Current Medications Medications Dose Ordered Sig/Ajma Route Start Time Stop Time Status Last Admin Dose Admin Clindamycin HCl 150 mg ONCE ONCE PO 10/10/20 18:30 10/10/20 18:31 DC 10/10/20 18:44 150 MG Ketorolac Tromethamine 60 mg ONCE ONCE IM 10/10/20 18:30 10/10/20 18:31 DC 10/10/20 18:45 60 MG Vital Signs/I&O 10/10/20 18:05 Temp 37.0 Pulse 83 Resp 14 B/P (MAP) 151/87 (108) Pulse Ox 98 O2 Delivery Room Air Blood Pressure Mean: 108 Departure Impression Primary Impression: Dental infection Disposition: 01 HOME, SELF-CARE Condition: Improved Departure-Patient Inst. Decision time for Depature: 18:25 Referrals: CARLITOS FELTON APRN (PCP/Family) Primary Care Physician Patient Instructions: Dental Pain ED Add. Discharge Instructions: Plan: 1. May use ice pack to face as needed for comfort. 2. Use Tylenol or Ibuprofen as needed per package. Use Tramadol for breakthrough pain. 3. Follow up with your dentist next week. 4. Return to ER for any new, concerning, or worsening symptoms. All discharge instructions reviewed with patient and/or family. Voiced understanding. Scripts Clindamycin HCl (Clindamycin HCl) 150 Mg Capsule 150 MG PO QID for 7 Days, #28 CAP 0 Refills Prov: KYLE CLAROS APRN 10/10/20 KYLE CLAROS APRN Oct 10, 2020 18:26
[2020-10-10] MEDS ORDERED: CLINDAMYCIN 150 MG (CLEOCIN) CAP PO ONE (18:30)
[2020-10-10] MEDS ORDERED: KETOROLAC 60 MG/2 ML VIAL IM ONE (18:30)
[2020-10-10] MEDS ORDERED: CLIN150C18 PO (19:12)
== END 2020-10-10 19:17 | disposition home or self-care (01) ==
LOC: EDUNIT# 17:57 → ER 18:01
DX: K04.7 Periapical abscess without sinus (principal); F41.9 Anxiety disorder, unspecified; F17.210 Nicotine dependence, cigarettes, uncomplicated; Z79.899 Other long term (current) drug therapy
CPT/HCPCS: 99284